=== PATIENT | female | born 1985 ===

== ENCOUNTER 2018-10-01 03:40 | Emergency (ER) | payer SELFPAY ==
[2018-10-01] MEDS ORDERED: Albuterol/Ipratropium 3.0-0.5 MG/3 ML Neb Soln NEB ONE ×2 (03:48→03:49)
[2018-10-01] MEDS ORDERED: Sodium Chloride 0.9% 10 ML Syringe FLUSH PRN (03:50)
[2018-10-01] MEDS ORDERED: Sodium Chloride 0.9% 2.5 ML Syringe FLUSH PRN (03:50)
[2018-10-01] MEDS ORDERED: methylPREDNISolone Sodium Succinate 125 MG/2 ML SDV IVPUSH ONE (03:54)
[2018-10-01] MEDS ORDERED: Morphine 2 MG/ML Syringe IVPUSH ONE (03:54)
--- NOTE | 2018-10-01 03:54 | EDM.PDOC ---
ED HPI GENERAL MEDICAL PROBLEM - General Chief Complaint: General Stated Complaint: CHEST PAIN, 14 WKS Time Seen by Provider: 10/01/18 03:41 - History of Present Illness INITIAL COMMENTS - FREE TEXT/NARRATIVE: HISTORY AND PHYSICAL: History of present illness: The patient is a 33-year-old female who is a one para 0 and is approximately 14 weeks and follows with OB in [place] but is here in [place] temporarily and presents with a 2-3 day history of cough which has been dry and hacking but no fever and now presents with diffuse chest discomfort and difficulty taking breaths. The patient has not had fever runny nose or sore throat and no abdominal pain vomiting or diarrhea. She's had no vaginal bleeding and no urinary symptoms and she has not started to feel the baby move yet. The patient says that with the coughing there is discomfort and initially it was only hurting with the cough but now she feels very "congested and tight" throughout her lungs and feels like it is difficult to take a deep breath--this started 15-20 minutes prior to arrival. She did not get her flu shot this year and she is not a smoker. The pain in her chest is diffuse and not on the left or right side and it does not radiate. She has no pain in her back. The patient has no significant social history and her father did have cardiac disease in his late 50s but had pre-existing diabetes and other medical issues contributing to that. She has no leg pain or swelling. Review of systems: As per history of present illness and below otherwise all systems reviewed and negative. Past medical history: As per history of present illness and as reviewed below otherwise noncontributory. Surgical history: As per history of present illness and as reviewed below otherwise noncontributory. Social history: No reported history of drug or alcohol abuse. Family history: As per history of present illness and as reviewed below otherwise noncontributory. Physical exam: General: Well-developed well-nourished female who is nontoxic and is not taking very deep breaths and looks somewhat uncomfortable and is soft-spoken. She is not breathless on my evaluation and vital signs are noted by me. She seems somewhat anxious and nervous about the evaluation here HEENT: Atraumatic, normocephalic, pupils reactive, negative for conjunctival pallor or scleral icterus, mucous membranes moist, throat clear, neck supple, nontender, trachea midline. Lungs: Coarse breath sounds bilaterally right lower lobe greater than left with some expiratory wheezing and rhonchi, there is no work of breathing or stridor breath sounds equal bilaterally, chest nontender. Heart: S1S2, regular rate and rhythm no overt murmurs Abdomen: Soft, nondistended, some mild epigastric tenderness but no right upper or left upper quadrant tenderness and no tympany. There is no lower abdominal tenderness rebound or guarding on palpation. Negative for masses or hepatosplenomegaly. Negative for costovertebral tenderness. Pelvis: Stable nontender. Genitourinary: Deferred. Rectal: Deferred. Extremities: Atraumatic, negative for cords or calf pain. Neurovascular unremarkable. No pedal edema or leg asymmetry Neuro: Awake, alert, oriented. Cranial nerves II through XII unremarkable. Cerebellum unremarkable. Motor and sensory unremarkable throughout. Exam nonfocal. Skin: No evidence of overt rashes or lesions and no diaphoresis Diagnostics: EKG heart tones CBC CMP troponin H. pylori influenza lactic acid lipase UA with reflex culture chest x-ray Therapeutics: IV O2 monitor IV fluids duo neb Solu-Medrol, low-dose morphine NOTE: Patient has refused IV placement IV fluids and any IV medications. Prednisone by mouth spacer and spacer teaching heart tones per nurse and 130s and variable When the nurse started talking about IV placement and site selection and started cleaning and prepping the area the patient stated that she did not want an IV placed and stated to nursing "don't do this to me". Nursing said that she would not place the IV if the patient did not want it and I will go in and discuss further care and evaluation. The patient is agreeable to have phlebotomy draw her blood work. 0425: After the duo neb the patient is moving air much better there are no longer any coarse breath sounds rhonchi or wheezing and the lower lung castillo have opened up. The patient does state that she feels much improved. Overall she looks better and was still like to not get the IV placed or IV fluids and less something abnormal on her blood work. Patient does seem slightly exaggerated with reaction to intervention and with any manipulation that my staff and I do. 0515: Patient continues to feel improved. Vitals are stable and I discussed at length with the patient and at bedside all testing results and care plan for home including Ventolin inhaler with spacer and a short burst of prednisone. There also aware that I discussed this case with Dr. Haas who is our on-call OB M.D. and she and I both feel that this is not a typical presentation for PE and in light of the fact that she is only 14 weeks she feels that her risk profile is much lower. We also discussed that she improved significantly with the nebulizer treatment and she had a pre-existing cough for 2-3 days. Discussed this conversation with the patient and and they are also in agreement that she is feeling better and they would like to go home and not pursue any more testing. At the conclusion of our conversation the told me that both of them had a very emotional evening and they were doing a lot of crying and he was concerned that maybe this triggered this episode and caused her baseline cough and symptoms to worsen. Impression: Bronchitis with bronchospasm improved Stable 14 weeks Definitive disposition and diagnosis as appropriate pending reevaluation and review of above. Chest Pain Score (Numeric/FACES): 7 - Related Data Allergies Allergy/AdvReac Type Severity Reaction Status Date / Time No Known Allergies Allergy Verified 10/01/18 03:48 Home Meds: Home Meds Vit37/Iron/Folic Acid [Prenata] 1 tab PO DAILY 10/01/18 [History] ED ROS GENERAL - Review of Systems Review Of Systems: ROS reveals no pertinent complaints other than HPI. ED EXAM, GENERAL - Physical Exam Exam: See Below (See dictation) Course - Vital Signs Last Recorded V/S: Last Vital Signs Temp 36.5 C 10/01/18 03:44 Pulse 78 10/01/18 04:39 Resp 20 10/01/18 04:39 BP 110/61 10/01/18 04:39 Pulse Ox 94 L 10/01/18 04:39 - Orders/Labs/Meds Orders: Active Orders 24 hr Category Date Time Status Cardiac Monitoring [RC] . DIRECTED Care 10/01/18 03:48 Active Communication Order [RC] STAT Care 10/01/18 03:48 Active Communication Order [RC] STAT Care 10/01/18 05:19 Ordered EKG Documentation Completion [RC] STAT Care 10/01/18 03:48 Active Oxygen Therapy, ED [RC] ASDIRECTED Care 10/01/18 03:48 Active Pulse Oximetry [RC] ASDIRECTED Care 10/01/18 03:48 Active RT Aerosol Therapy [RC] ASDIRECTED Care 10/01/18 03:48 Active RT Aerosol Therapy [RC] ASDIRECTED Care 10/01/18 03:50 Inactive Labs: Laboratory Tests 10/01/18 10/01/18 10/01/18 Range/Units 04:18 04:18 04:18 WBC 8.55 (4.0-11.0) K/uL RBC 4.06 L (4.30-5.90) M/uL Hgb 11.8 L (12.0-16.0) g/dL Hct 33.6 L (36.0-46.0) % MCV 82.8 (80.0-98.0) fL MCH 29.1 (27.0-32.0) pg MCHC 35.1 (31.0-37.0) g/dL RDW Std Deviation 46.3 (28.0-62.0) fl RDW Coeff of Audelia 15 (11.0-15.0) % Plt Count 134 L (150-400) K/uL MPV 8.70 (7.40-12.00) fL Neut % (Auto) 70.7 (48.0-80.0) % Lymph % (Auto) 23.6 (16.0-40.0) % Dougherty % (Auto) 4.3 (0.0-15.0) % Eos % (Auto) 1.3 (0.0-7.0) % Baso % (Auto) 0.1 (0.0-1.5) % Neut # (Auto) 6.0 H (1.4-5.7) K/uL Lymph # (Auto) 2.0 (0.6-2.4) K/uL Dougherty # (Auto) 0.4 (0.0-0.8) K/uL Eos # (Auto) 0.1 (0.0-0.7) K/uL Baso # (Auto) 0.0 (0.0-0.1) K/uL Nucleated RBC % 0.0 /100WBC Nucleated RBCs # 0 K/uL Lactate 1.2 (0.20-2.00) mmol/L Sodium 137 (136-145) mmol/L Potassium 3.4 L (3.5-5.1) mmol/L Chloride 103 (98-107) mmol/L Carbon Dioxide 21.6 (21.0-32.0) mmol/L BUN 6 L (7.0-18.0) mg/dL Creatinine 0.6 (0.6-1.0) mg/dL Est Cr Clr Drug Dosing TNP Estimated GFR (MDRD) > 60.0 ml/min Glucose 111 H (74-106) mg/dL Calcium 9.2 (8.5-10.1) mg/dL Total Bilirubin 0.3 (0.2-1.0) mg/dL AST 15 (15-37) IU/L ALT 19 (14-63) IU/L Alkaline Phosphatase 92 (46-116) U/L Troponin I < 0.050 (0.000-0.056) ng/mL Total Protein 7.5 (6.4-8.2) g/dL Albumin 3.0 L (3.4-5.0) g/dL Globulin 4.5 H (2.6-4.0) g/dL Albumin/Globulin Ratio 0.7 L (0.9-1.6) Lipase 80 (73-393) U/L Urine Color Urine Appearance Urine pH (5.0-8.0) Ur Specific Weston (1.001-1.035) Urine Protein (NEGATIVE) mg/dL Urine Glucose (UA) (NEGATIVE) mg/dL Urine Ketones (NEGATIVE) mg/dL Urine Occult Blood (NEGATIVE) Urine Nitrite (NEGATIVE) Urine Bilirubin (NEGATIVE) Urine Urobilinogen (<2.0) EU/dL Ur Leukocyte Esterase (NEGATIVE) H. pylori IgG Antibody (NEG) 10/01/18 10/01/18 Range/Units 04:18 04:35 WBC (4.0-11.0) K/uL RBC (4.30-5.90) M/uL Hgb (12.0-16.0) g/dL Hct (36.0-46.0) % MCV (80.0-98.0) fL MCH (27.0-32.0) pg MCHC (31.0-37.0) g/dL RDW Std Deviation (28.0-62.0) fl RDW Coeff of Audelia (11.0-15.0) % Plt Count (150-400) K/uL MPV (7.40-12.00) fL Neut % (Auto) (48.0-80.0) % Lymph % (Auto) (16.0-40.0) % Dougherty % (Auto) (0.0-15.0) % Eos % (Auto) (0.0-7.0) % Baso % (Auto) (0.0-1.5) % Neut # (Auto) (1.4-5.7) K/uL Lymph # (Auto) (0.6-2.4) K/uL Dougherty # (Auto) (0.0-0.8) K/uL Eos # (Auto) (0.0-0.7) K/uL Baso # (Auto) (0.0-0.1) K/uL Nucleated RBC % /100WBC Nucleated RBCs # K/uL Lactate (0.20-2.00) mmol/L Sodium (136-145) mmol/L Potassium (3.5-5.1) mmol/L Chloride (98-107) mmol/L Carbon Dioxide (21.0-32.0) mmol/L BUN (7.0-18.0) mg/dL Creatinine (0.6-1.0) mg/dL Est Cr Clr Drug Dosing Estimated GFR (MDRD) ml/min Glucose (74-106) mg/dL Calcium (8.5-10.1) mg/dL Total Bilirubin (0.2-1.0) mg/dL AST (15-37) IU/L ALT (14-63) IU/L Alkaline Phosphatase (46-116) U/L Troponin I (0.000-0.056) ng/mL Total Protein (6.4-8.2) g/dL Albumin (3.4-5.0) g/dL Globulin (2.6-4.0) g/dL Albumin/Globulin Ratio (0.9-1.6) Lipase (73-393) U/L Urine Color YELLOW Urine Appearance CLEAR Urine pH 5.5 (5.0-8.0) Ur Specific Weston <= 1.005 (1.001-1.035) Urine Protein NEGATIVE (NEGATIVE) mg/dL Urine Glucose (UA) NEGATIVE (NEGATIVE) mg/dL Urine Ketones NEGATIVE (NEGATIVE) mg/dL Urine Occult Blood NEGATIVE (NEGATIVE) Urine Nitrite NEGATIVE (NEGATIVE) Urine Bilirubin NEGATIVE (NEGATIVE) Urine Urobilinogen 0.2 (<2.0) EU/dL Ur Leukocyte Esterase NEGATIVE (NEGATIVE) H. pylori IgG Antibody NEGATIVE (NEG) Meds: Medications Discontinued Medications Generic Name Dose Route Start Last Admin Trade Name Freq PRN Reason Stop Dose Admin Albuterol/Ipratropium 3 ml 10/01/18 03:48 10/01/18 04:01 Duoneb 3.0-0.5 Mg/3 Ml NEB 10/01/18 03:49 Not Given ONETIME ONE Albuterol/Ipratropium 3 ml 10/01/18 03:49 10/01/18 04:02 Duoneb 3.0-0.5 Mg/3 Ml NEB 10/01/18 03:50 3 ml ONETIME ONE Administration Sodium Chloride 1,000 mls @ 999 mls/hr 10/01/18 03:50 10/01/18 04:20 Normal Saline IV 10/01/18 04:50 Not Given STAT ONE Methylprednisolone Sodium Succinate 125 mg 10/01/18 03:54 10/01/18 04:20 Solu-Medrol IVPUSH 10/01/18 03:55 Not Given ONETIME ONE Morphine Sulfate 2 mg 10/01/18 03:54 10/01/18 04:20 Morphine IVPUSH 10/01/18 03:55 Not Given ONETIME ONE Prednisone 10 mg 10/01/18 05:19 Prednisone PO 10/01/18 05:20 ONETIME ONE Sodium Chloride 10 ml 10/01/18 03:50 Saline Flush FLUSH ASDIRECTED PRN Keep Vein Open Sodium Chloride 2.5 ml 10/01/18 03:50 Saline Flush FLUSH ASDIRECTED PRN Keep Vein Open Departure - Departure Time of Disposition: 05:23 Disposition: Home, Self-Care 01 Condition: Good Clinical Impression: Acute bronchitis with bronchospasm, Second trimester - Discharge Information Referrals: PCP,None [Primary Care Provider] - Forms: ED Department Discharge Additional Instructions: The following information is given to patients seen in the emergency department who are being discharged to home. This information is to outline your options for follow-up care. We provide all patients seen in our emergency department with a follow-up referral. The need for follow-up, as well as the timing and circumstances, are variable depending upon the specifics of your emergency department visit. If you don't have a primary care physician on staff, we will provide you with a referral. We always advise you to contact your personal physician following an emergency department visit to inform them of the circumstance of the visit and for follow-up with them and/or the need for any referrals to a consulting specialist. The emergency department will also refer you to a specialist when appropriate. This referral assures that you have the opportunity for followup care with a specialist. All of these measure are taken in an effort to provide you with optimal care, which includes your followup. Under all circumstances we always encourage you to contact your private physician who remains a resource for coordinating your care. When calling for followup care, please make the office aware that this follow-up is from your recent emergency room visit. If for any reason you are refused follow-up, please contact the [facility] emergency department at and ask to speak to the emergency department charge nurse. [facility] [address] [place] [id number] [facility] Primary care-[facility] [address] [address] Please discuss tonta's events with your OB M.D. back at home in [place] and if you stay in the area may you may also follow-up with one of our providers using resources given to above. Please use the Ventolin inhaler you have been given with a spacer you have been given from the ED as directed, 1-2 puffs via the spacer every 6 hours for the next 2 days and then every 6 hours as needed. Start the prednisone prescription you have been given this morning on morning as you have been given a dose here. Push hydration and use cool mist humidifier to keep the air moist. Use [id number] cough medications per your OB MDs direction. Return to ER as needed and as discussed - My Orders Last 24 Hours: My Active Orders 10/01/18 03:48 Cardiac Monitoring [RC] . DIRECTED Communication Order [RC] STAT EKG Documentation Completion [RC] STAT Oxygen Therapy, ED [RC] ASDIRECTED Pulse Oximetry [RC] ASDIRECTED RT Aerosol Therapy [RC] ASDIRECTED 10/01/18 03:50 RT Aerosol Therapy [RC] ASDIRECTED 10/01/18 05:19 Communication Order [RC] STAT - Assessment/Plan Last 24 Hours: My Active Orders 10/01/18 03:48 Cardiac Monitoring [RC] . DIRECTED Communication Order [RC] STAT EKG Documentation Completion [RC] STAT Oxygen Therapy, ED [RC] ASDIRECTED Pulse Oximetry [RC] ASDIRECTED RT Aerosol Therapy [RC] ASDIRECTED 10/01/18 03:50 RT Aerosol Therapy [RC] ASDIRECTED 10/01/18 05:19 Communication Order [RC] STAT
[2018-10-01] MEDS: Sodium Chloride 0.9% 1,000 ML IV ONE ×2 (04:02→04:20)
[2018-10-01 04:49] LABS: CHLORIDE,CL 103 mmol/L (98-107); SODIUM,NA 137 mmol/L (136-145)
--- NOTE | 2018-10-01 05:04 | CR ---
Indication: Pain, shortness of breath Technique: Chest 1 view Comparison: None Findings/Impression: Cardiovascular and mediastinum: Heart size and vasculature are normal in caliber and appearance. Mediastinum is within normal limits. Lungs and pleural space: Lungs are clear. No sign of infiltrate or mass. No sign of pleural effusion. No pneumothorax. Bones and soft tissues: No significant findings. Dictated by Callie Quinones MD @ Oct 01 2018 5:01AM Signed by Dr. Callie Quinones @ Oct 01 2018 5:02AM
[2018-10-01] MEDS ORDERED: predniSONE 10 MG Tab PO ONE (05:19)
== END 2018-10-01 05:35 | disposition home or self-care (01) ==
LOC: MW.ED 03:40
DX: O99.512 Diseases of the respiratory system complicating pregnancy, second trimester (principal); J20.9 Acute bronchitis, unspecified; Z79.899 Other long term (current) drug therapy; Z3A.14 14 weeks gestation of pregnancy
CPT/HCPCS: 36415; 71045; 80053; 81003; 83605; 83690; 84484; 85025; 86677; 87804; 93005; 99285; A9270; 99284; J7040; J7620-GY